=== PATIENT | male | born 1980 | race Caucasian/White ===

== ENCOUNTER → 2017-03-10 19:32 | Emergency (ER) | payer SELFPAY | END | disposition left against medical advice (07) | LOC: ER 19:32 | DX: S81.811A Laceration without foreign body, right lower leg, initial encounter (principal); Z53.21 Procedure and treatment not carried out due to patient leaving prior to being seen by health care provider; X58.XXXA Exposure to other specified factors, initial encounter; Y93.89 Activity, other specified; Y99.8 Other external cause status; Y92.89 Other specified places as the place of occurrence of the external cause ==

== ENCOUNTER 2018-10-07 16:14 | Emergency (ER) | payer BC ==
[~2018-10-07] VITALS: Ht 175.3 cm; Wt 99.8 kg
[2018-10-07 16:18] VITALS: BP 135/80
[2018-10-07] MEDS ORDERED: DIPHTH,PERTUSS(ACELL),TET TOX 0.5 ML DISP.SYRIN. VAX IM ONE (16:30)
[2018-10-07] MEDS ORDERED: LIDOCAINE 1% PF 30 ML VIAL. INJ ONE (16:30)
--- NOTE | 2018-10-07 16:30 | PHYS DOC ---
Past Medical History Past Medical History: No Pertinent History Adult General Chief Complaint Chief Complaint: LACERATION/AVULSION HPI HPI 38-year-old male presents to ER with complaints of laceration to left lower leg. Patient reports he was walking and fell through the floor causing the laceration. Patient denies any left foot, heel, or knee pain. Patient denies striking his head during the fall stating he did not completely fall over. Patient denies any lower back pain. Pt's reports mild tenderness at lac site- denies difficulty walking. Patient is uncertain of last tetanus update. Patient denies large amount of blood loss. Pt was evaluated at the scene by EMS and had dressing applied at that time. Review of Systems Review of Systems Constitutional: Denies difficulty walking HENT: Denies head pain Musculoskeletal: Denies back/neck pain or joint pain [] Integument: Reports laceration lt lower leg Neurologic: Denies focal weakness or sensory changes. Denies numbness/tingling All other systems were reviewed and found to be within normal limits, except as documented in this note. Current Medications Current Medications Current Medications Medications (Trade) Dose Ordered Sig/Taz Start Time Stop Time Status Last Admin Dose Admin Diphtheria/ Tetanus/Acell Pertussis (Boostrix) 0.5 ml ONCE ONCE 10/07/18 16:30 10/07/18 16:31 DC 10/07/18 17:02 0.5 ML Lidocaine HCl (Xylocaine 1% Pf 30ml Vial) 30 ml 1X ONCE 10/07/18 16:30 10/07/18 16:31 DC 10/07/18 17:03 30 ML Allergies Allergies Allergies Coded Allergies Type Severity Reaction Last Updated Verified No Known Drug Allergies 10/07/18 No Physical Exam Physical Exam Constitutional: Well developed, well nourished, no acute distress, non-toxic appearance. [] Neck: Normal range of motion- no tenderness, supple Cardiovascular:Heart rate regular Lungs & Thorax: Resp. equal/nonlabored Skin: Warm, dry, no erythema, no rash. [] Back: No tenderness, no CVA tenderness. [] Extremities: Laceration lt medial lower leg- no active bleeding. Skin color symmetric in bilat. LEs- no swelling distal to injury. No cyanosis, no clubbing , ROM intact, no edema. 2+ dorsalis pedis/posterior tibial bilat. Neurologic: Alert and oriented X 3, normal motor function, normal sensory function, no focal deficits noted. [] Psychologic: Affect normal, judgement normal, mood normal. [] Current Patient Data Vital Signs Vital Signs Date Time Temp Pulse Resp B/P (MAP) Pulse Ox O2 Delivery O2 Flow Rate FiO2 10/07/18 16:18 98.3 95 18 135/80 (98) 97 Room Air 98.3 EKG EKG [] Radiology/Procedures Radiology/Procedures [] Course & Med Decision Making Course & Med Decision Making X-ray was offered to rule out acute fracture or foreign body- he is wanting minimal care while in the ER reporting if his pain or symptoms persist he would follow-up outpatient versus imaging or tests while in the ER. 1645: Laceration repair: 4mL Lidocaine 1% used for local anesthesia at lac site. Thorough wound cleanse w/NS and betadine with no FB found on exploration of wound. #7 4-0 nylon sutures for wound closure w/simple interrupted technique. Laceration 6 cm. Wound edges well approximated. No active bleeding following procedure with minimal blood loss. Pt remained neuro/vascular intact prior to/and following lac repair. No swelling/ecchymosis at lac site. Wound care was discussed with pt with s&s to monitor for. Pt advised on suture removal by PCP in 7 days. Pt was offered tylenol/ibuprofen while in ER but reported pain was tolerable preferred no medication/imaging. Pt reports he does have crutches at home to use if pain increases and he reported he would seek re- eval by PCP with any concerns or change in condition. Discharge instructions discussed and education provided on s&s to return to ER for. Pt was updated on tetanus while in ER. Dragon Disclaimer Dragon Disclaimer This electronic medical record was generated, in whole or in part, using a voice recognition dictation system. Departure Departure Impression: Primary Impression: Laceration Disposition: 01 HOME, SELF-CARE Condition: STABLE Referrals: NO PCP (PCP) Patient Instructions: Laceration Care, Adult, Sutured Wound Care Additional Instructions: Sutures out in 7 days by primary care physician. Keep wound covered as discussed while working. While at home take dressing off and let wound be open to air. Tylenol and/or ibuprofen as needed for pain as directed on container. You were updated on your tetanus while in the emergency department. If pain persist or with concerns follow-up with primary care physician for reevaluation and possible imaging of left lower leg. ANJELICA AUSTIN APRN Oct 07, 2018 16:30
== END 2018-10-07 17:22 | disposition home or self-care (01) ==
LOC: ER 16:14
DX: S81.812A Laceration without foreign body, left lower leg, initial encounter (principal); W18.30XA Fall on same level, unspecified, initial encounter; Y93.01 Activity, walking, marching and hiking; Y92.89 Other specified places as the place of occurrence of the external cause; Y99.8 Other external cause status
CPT/HCPCS: 12002; 90471; 90715; 99283-25